=== PATIENT | male | born 1945 | race Caucasian/White ===

== ENCOUNTER 2016-12-20 08:53 | Emergency (ER) | payer MEDICARE ==
[~2016-12-20] VITALS: Ht 180.3 cm; Wt 76.0 kg
[2016-12-20 08:54] VITALS: BP 129/69; PULSE 71; RESP 18; TEMP 98.1; O2SAT 95
[2016-12-20] MEDS ORDERED: IBUP800T23 PO (09:12)
[2016-12-20] MEDS ORDERED: ROBA500T PO (09:12)
--- NOTE | 2016-12-20 09:13 | PD ---
HPI Chief Complaint: Back/ Neck Pain or Injury Time Seen by Provider: 09:10 Travel History International Travel<30 days: No Contact w/Intl Traveler<30days: No Traveled to known affect area: No History of Present Illness HPI 71-year-old male, with history of chronic low back pain, with exacerbation of chronic low back pain since Friday. Reports intermittent muscle spasming in his lower back. Denies fall or injury. Denies radiation of pain. Says when his back spasms like this he gets two injections and he is good within an hour. He denies encopresis, incontinence, saddle anesthesias. Denies IV drug use or cancer. Denies fever, vomiting, abdominal pain, change in urine or stool. Denies paresthesias, loss of sensation, decreased range of motion, decreased strength to bilateral lower extremities. Has been taking ibuprofen for symptom management. Pain is aggravated with sitting down and spontaneously. Pain is decreased with standing up. Symptoms are moderate in severity. No known allergies. Has no other medical complaints. No other modifying factors or associated signs and symptoms. PFSH Social History Tobacco Use: Yes Allergies-Medications (Allergen,Severity, Reaction): Coded Allergies: No Known Allergies (Unverified , 12/20/16) Reported Meds & Prescriptions Reported Meds & Active Scripts Active Ibuprofen 800 Mg Tab 800 Mg PO Q8H PRN Robaxin (Methocarbamol) 500 Mg Tab 500 Mg PO QID PRN Review of Systems Except as stated in HPI: all other systems reviewed are Neg Physical Exam Narrative GENERAL: Well-nourished, well-developed male patient, in no acute distress; afebrile, nontoxic-appearing SKIN: Warm and dry. HEAD: Atraumatic. Normocephalic. EYES: Pupils equal and round. No scleral icterus. No injection or drainage. ENT: Mucosa pink and moist. Airway patent. NECK: Trachea midline. CARDIOVASCULAR: Regular rate. RESPIRATORY: No accessory muscle use. GASTROINTESTINAL: Round. MUSCULOSKELETAL: Bilateral lower extremities supple and non-tense with 2+ pedal pulses and sensory intact; with full range of motion and 5/5 strength. 2 + DTRs bilaterally. Active dorsiflexion and extension of bilateral feet. Ambulatory in room with guarded gait. Sitting up in bed at 90. No obvious deformities. No clubbing. No cyanosis. No edema. BACK: No midline point tenderness on palpation of the lumbar spine. Tenderness on palpation of bilateral lumbar iliosacral area. No obvious deformities. NEUROLOGICAL: Awake and alert. Oriented 3. No obvious cranial nerve deficits. Motor grossly within normal limits. Normal speech. Moves all extremities. 5/5 strength to all extremities. Sensory intact. PSYCHIATRIC: Appropriate mood and affect; insight and judgment normal. Data Data Last Documented VS Vital Signs Date Time Temp Pulse Resp B/P (MAP) Pulse Ox O2 Delivery O2 Flow Rate FiO2 12/20/16 08:54 98.1 71 18 129/69 (89) 95 Orders Orders Ketorolac Inj (Toradol Inj) (12/20/16 09:15) Orphenadrine Inj (Norflex Inj) (12/20/16 09:15) Ed Discharge Order (12/20/16 09:13) Acetamin-Hydrocod 325-5 Mg ([place] 5-325 (12/20/16 10:00) MDM Medical Decision Making Medical Screen Exam Complete: Yes Emergency Medical Condition: Yes Medical Record Reviewed: Yes Differential Diagnosis Acute exacerbation of chronic low back pain, muscle spasms back, sciatica Narrative Course 71-year-old male physical examination consistent with acute exacerbation of chronic low back pain and muscle spasms of the back. He patient is having intermittent low back spasms during physical exam. Symptoms are similar with past exacerbations of low back pain and muscle spasms. Denies new or recent injury. Denies encopresis, incontinence, saddle anesthesias. Denies IV drug use or cancer. Patient is ambulatory in the room with a guarded gait. Toradol and Norflex administered in the ER. Robaxin and ibuprofen prescribed for home. 1005: Patient is still having some intermittent significant lower back spasms. He reports some improvement of low back pain. Lortab ordered. 1030: Patient reports continued improvement and low back pain. He is having less spasms and says he is feeling better and is ready to be discharged home. Lortab prescribed for home. Instructed patient to follow up with primary care provider. Patient verbalizes understanding and agreement with treatment plan. Patient is medically cleared and stable for discharge. Discussed reasons to return to the emergency department. Patient agrees with treatment plan. The patients vital signs are stable and the patient is stable for outpatient follow- up and treatment. Patient discharged home, stable and in no acute distress. Diagnosis Primary Impression: Acute exacerbation of chronic low back pain Additional Impression: Muscle spasm of back Referrals: [facility] Primary Care Physician Patient Instructions: Acute Low Back Pain (ED), General Instructions, Muscle Spasm (ED) Departure Forms: Tests/Procedures, Work Release Enter return to work date: Dec 23, 2016 Additional Instructions: Tylenol or ibuprofen as directed and as needed for pain Robaxin as prescribed and as needed for muscle spasms Heating pad and/or ice to affected area to reduce pain Avoid aggravating activities; increase activity as tolerated Follow-up with primary care provider Return to emergency department immediately with worsening of symptoms Med/Other Pt SpecificInfo: Prescription(s) given Scripts Hydrocodone-Acetaminophen (Lortab) 5-325 Mg Tab 1 TAB PO Q6H Y for PAIN, #12 TAB 0 Refills Prov: Kalyani Andrews 12/20/16 Ibuprofen (Ibuprofen) 800 Mg Tab 800 MG PO Q8H Y for PAIN SCALE 1 TO 10, #20 TAB 0 Refills Prov: Kalyani Andrews 12/20/16 Methocarbamol (Robaxin) 500 Mg Tab 500 MG PO QID Y for MUSCLE SPASM, #30 TAB 0 Refills Prov: Kalyani Andrews 12/20/16 Disposition: 01 DISCHARGE HOME Condition: Stable Kalyani Andrews Dec 20, 2016 09:13
[2016-12-20] MEDS ORDERED: KETOROLAC TROMETHAMINE 60 MG/2 ML (IM) VIAL IM ONE (09:15)
[2016-12-20] MEDS ORDERED: ORPHENADRINE INJ 60 MG/2 ML AMP IM ONE (09:15)
[2016-12-20] MEDS ORDERED: ACETAMINOPHEN/HYDROcodone 325 MG/5 MG TAB PO ONE (10:00)
[2016-12-20] MEDS ORDERED: HYDR-3533 PO (10:29)
== END 2016-12-20 10:36 | disposition home or self-care (01) ==
LOC: NEPK 08:53
DX: M54.5 Low back pain (principal); M62.830 Muscle spasm of back; G89.29 Other chronic pain; F17.200 Nicotine dependence, unspecified, uncomplicated
CPT/HCPCS: 96372; 99284; J1885; J2360